=== PATIENT | male | born 1970 | race Two or more races ===

== ENCOUNTER 2020-03-28 12:48 | Outpatient (REF) | payer MEDICAID, SELFPAY | END 2020-03-28 12:49 | disposition home or self-care (01) | LOC: HO.LAB 12:48 | PROVIDERS: Visit Provider Internal Medicine | DX: Z20.828 Contact with and (suspected) exposure to other viral communicable diseases (principal) | CPT/HCPCS: C9803; U0003 ==

== ENCOUNTER 2020-04-27 06:10 | Outpatient (REF) | payer MEDICAID, SELFPAY | END 2020-04-27 06:11 | disposition home or self-care (01) | LOC: HO.LAB 06:10 | PROVIDERS: PCP Family Medicine; Visit Provider Internal Medicine | DX: Z20.828 Contact with and (suspected) exposure to other viral communicable diseases (principal) | CPT/HCPCS: C9803; U0003 ==

== ENCOUNTER 2020-11-05 14:00 | Outpatient (REF) | payer MEDICAID, SELFPAY ==
--- NOTE | ~2020-11-05 | XR_ITS ---
EXAMINATION: XR CHEST CLINICAL INFORMATION: Cough COMPARISON: None TECHNIQUE: 2 views of the chest were obtained. FINDINGS: No significant abnormality is noted involving the heart, lungs, mediastinum, bony thorax or soft tissues. XR/XR chest 2V IMPRESSION: Unremarkable examination.
== END 2020-11-05 14:01 | disposition home or self-care (01) ==
LOC: HO.XRAY 14:00
PROVIDERS: Absent Provider Internal Medicine; PCP Internal Medicine; Visit Provider Emergency Medicine
DX: R05 Cough (principal)
CPT/HCPCS: 71046

== ENCOUNTER 2023-02-12 14:40 | Outpatient (REF) | payer OTHER, SELFPAY ==
[2023-02-12 16:06] LABS: MANUAL DIFF FLAG NO
[2023-02-12 16:19] LABS: Basophils Absolute Auto 0.1 X10*3/uL (0.0-0.2); Basophils Percent Auto 0.6 % (0-2); Eosinophils Absolute Auto 0.1 X10*3/uL (0.0-0.4); Eosinophils Percent Auto 1.7 % (0-4); Hematocrit 40.9 % (42.0-52.0); Hemoglobin 13.8 g/dl (14.0-18.0); Imm Gran Abs Auto 0.02 X10*3/uL (0.00-0.03); Imm Gran Pct Auto 0.3 % (0.0-0.4); Lymphocytes Absolute Auto 2.9 X10*3/uL (1.2-4.9); Lymphocytes Percent Auto 37.6 % (20-40); Mean Corpuscular HGB Conc 33.7 g/dl (31.0-36.0); Mean Corpuscular Hemoglobin 31.4 pg (27.0-33.0); Monocytes Absolute Auto 0.8 X10*3/uL (0.1-1.2); Neutrophils Absolute Auto 3.9 x10*3/uL (2.0-8.3); Neutrophils Percent Auto 49.8 % (45-73); Platelet Count 248 X10*3/uL (160-400); Red Cell Distribution Width 12.7 % (11.0-16.0); White Blood Count 7.8 X10*3/uL (4.8-10.8)
[2023-02-12 17:09] LABS: Alanine Aminotransferase 46 U/L (0-40); Albumin Level 4.1 g/dL (3.5-5.0); Alkaline Phosphatase 85 U/L (39-117); Anion Gap 12 (12-20); Bilirubin Total 0.3 mg/dL (0.0-1.0); Blood Urea Nitrogen 12 mg/dL (9-16); Calcium 9.2 mg/dL (8.4-10.2); Carbon Dioxide 22 mmol/L (22-29); Chloride 107 mmol/L (96-108); Estimated Glomerular Filt Rate 57; Glucose Random 80 mg/dL (60-115); Potassium 3.8 mmol/L (3.3-5.1); Sodium 137 mmol/L (135-145); Total Protein 7.8 g/dL (6.5-8.0)
[2023-02-12 17:17] LABS: Aspartate Amino Transferase 27 U/L (5-37)
[2023-02-12 18:36] LABS: CT PCR NOT DETECTED (Not Detect.); NG PCR NOT DETECTED (Not Detect.)
[2023-02-13 08:34] LABS: ~Hepatitis C Antibody Nonreactive (Nonreactive)
[2023-02-13 09:58] LABS: Iron 82 mcg/dL (45-160); Percent Iron Saturation 29 % (15-50); Total Iron Binding Capacity 278 mcg/dL (228-428); Unsaturated Iron Binding 196 ug/dL
[2023-02-13 10:26] LABS: Ferritin 189 ng/mL (20-250)
[2023-02-13 10:31] LABS: Folate 5.9 ng/mL (> or = 4.0); Vitamin B12 455 pg/mL (200-900)
[2023-02-14 14:14] LABS: TS Negative Control Passed; TS Panel A 0; TS Panel B 0; TS Positive Control Passed; TSpotTB Negative (Negative)
[2023-02-16 06:49] LABS: Absolute CD3 Count 2368 cells/uL (840-3060); Absolute CD4 Count 900 cells/uL (490-1740); Absolute CD8 Count 1445 cells/uL (180-1170); Absolute Lymphocytes 3382 cells/uL (850-3900); CD4 CD8 Ratio 0.62 (0.86-5.00); Percent CD3 Cells 70 % (57-85); Percent CD4 Cells 27 % (30-61); Percent CD8 Cells 43 % (12-42)
[2023-02-17 08:44] LABS: RPR Rapid Plasma Reagin REACTIVE (NON-REACTIVE)
[2023-02-17 13:19] LABS: HIV RNA PCR Qn Copies NOT DETECTED copies/mL (NOT DETECTED); HIV RNA PCR Qn Log Copies NOT DETECTED (NOT DETECTED)
== END 2023-02-12 14:41 | disposition home or self-care (01) ==
LOC: HO.HHCL 14:40
PROVIDERS: Visit Provider Student in an Organized Health Care Education/Training Program
DX: K76.0 Fatty (change of) liver, not elsewhere classified (principal); B20 Human immunodeficiency virus [HIV] disease; Z11.3 Encounter for screening for infections with a predominantly sexual mode of transmission
CPT/HCPCS: 0353U; 80053; 82607; 82728; 82746; 83540; 85025; 86359; 86360; 86481; 86592; 86593; 86803; 87536

== ENCOUNTER 2023-04-06 13:58 | Outpatient (REF) | payer OTHER, SELFPAY ==
[2023-04-06 16:16] LABS: Hematocrit 46.1 % (42.0-52.0); Hemoglobin 15.4 g/dl (14.0-18.0); Mean Corpuscular HGB Conc 33.4 g/dl (31.0-36.0); Mean Corpuscular Hemoglobin 31.5 pg (27.0-33.0); Mean Corpuscular Volume 94.3 fL (80.0-98.0); Mean Platelet Volume 10.6 fL (9.4-12.4); Platelet Count 263 X10*3/uL (160-400); Red Blood Count 4.89 X10*6/uL (4.60-5.80); Red Cell Distribution Width 12.5 % (11.0-16.0); White Blood Count 9.5 X10*3/uL (4.8-10.8)
[2023-04-07 07:10] LABS: HBS Num1 0.34 mIU/mL (0-7.99); HBc Num1 0.11 S/CO (0.00-0.79); Hepatitis B Core Antibody Nonreactive (Nonreactive); ~Hepatitis B Surface Antibody NONREACTIVE (Nonreactive)
[2023-04-07 07:14] LABS: HBsAGNum1 0.32 S/CO (0.00-0.99); Hepatitis B Surface Antigen Negative (Negative)
[2023-04-07 07:33] LABS: Syphilis Screen Reactive (Nonreactive)
[2023-04-07 10:45] LABS: CT PCR NOT DETECTED (Not Detect.); NG PCR NOT DETECTED (Not Detect.)
[2023-04-10 19:54] LABS: C. Trachomatis RNA TMA, Throat NOT DETECTED; N. gonorrhoeae RNA TMA, Throat NOT DETECTED
[2023-04-12 00:58] LABS: C.Trachomatis RNA TMA, Rectal NOT DETECTED; N.Gonorrhoeae RNA TMA, Rectal NOT DETECTED
[2023-04-13 09:52] LABS: RPR Quantitative Reactive 1:8 (Nonreactive); T.Pallidum Particle Agg Test Reactive (Nonreactive)
== END 2023-04-06 13:59 | disposition home or self-care (01) ==
LOC: HO.HHCL 13:58
PROVIDERS: Visit Provider Student in an Organized Health Care Education/Training Program
DX: R85.612 Low grade squamous intraepithelial lesion on cytologic smear of anus (LGSIL) (principal); Z72.53 High risk bisexual behavior
CPT/HCPCS: 0353U; 36415; 85027; 86592; 86704; 86706; 86780; 87340; 87491; 87591; 88112

== ENCOUNTER 2023-04-20 13:24 | Outpatient (AMB) | payer OTHER, SELFPAY ==
--- NOTE | 2023-04-20 13:28 | A.OFFVIS_ITS ---
Intake Vital Signs 04/20/23 13:41 Height 5 ft 3.5 in Weight 244 lb BMI 42.5 BP 174/115 H Blood Pressure Location Lt brachial Position Sitting Pulse 85 Intake Visit Reasons: Anal lesion Intake Note: Patient is seen in office for evaluation and treatment of an anal lesion. Patient c/o: denies bleeding, constipation, nausea, vomit, is due to colonoscopy Prescription Clerk Required: No Accompanied by: Other Relationship Allergies No Known Allergies Allergy (Verified 04/20/23 13:40) Medication List - Last Reconciled 04/20/23 by Marcellus Hargrove MD amlodipine 5 mg PO DAILY kxllalchb-nsuxuxak-nnyxyor ala 50-200-25 mg (Biktarvy) 1 tab PO DAILY bupropion HCl 150 mg PO QAM loratadine 10 mg PO DAILY HPI Anal lesion HPI Details 53-year-old male referred for an anal le clemente. He is HIV positive, is on Biktarvy, and had undergone anal Pap with his primary care physician. This showed low-grade squamous intraepithelial lesion on cytology. He was therefore referred to me. He denies any palpable lesions in the anus. He says that he does this bright blood from anus after sexual intercourse. He admits to anoreceptive course. He says that he is often not protected sex. 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 HIV (human immunodeficiency virus infection) Family History Mother Stomach cancer Alcohol intake: never Patient Tobacco Use Status: Never used Tobacco Review of Systems Const Denies chills and Denies fever(s) Card Denies chest pain, Denies dyspnea and Denies dyspnea on exertion Resp Denies cough, Denies dyspnea and Denies dyspnea on exertion GI Reports hematochezia and Denies change in bowel habits Denies hematuria and Denies difficulty urinating Musc Denies back pain and Denies limited range of motion Neuro Denies focal weakness and Denies convulsions Psych Denies depression and Denies mood swings Physical Exam Const Other: Morbidly obese General: comfortable and no acute distress Orientation/consciousness: patient oriented x3 Neck Neck: Yes no lymphadenopathy Resp Auscultation: clear to auscultation bilaterally Cardio Rhythm: regular rhythm GI Other: Rectal exam shows a moderate size external hemorrhoid on the left, no other perianal lesions, anoscopy as described Palpation (GI): Soft to palpation, nontender and no guarding Neuro General: patient oriented x3 Office Procedures Anoscopy He was in jackelyn-knife position. The anoscope was gently inserted. A full examination of the anal canal was done. He did have this mixed internal external hemorrhoidal column on the left side. There were no other lesions. There was no ulceration. There was no induration on digital exam. There was no blood on the examining finger. There were no mucosal changes in the anal canal. 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 He does have HIV and engages in anal receptive intercourse which is often unprotected. There are no definite established guidelines for surveillance for AIN especially for low grade lesions. I will however see him again in about 6 months to repeat his anoscopy. He understands the plan well. 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
[2023-04-20 13:41] VITALS: BP 174/115; PULSE 85; BMI 42.5
== END 2023-04-20 13:47 | disposition home or self-care (01) ==
PROVIDERS: PCP Internal Medicine; Referring Provider Internal Medicine; Visit Provider Surgery
DX: R85.612 Low grade squamous intraepithelial lesion on cytologic smear of anus (LGSIL) (principal)
CPT/HCPCS: 46600; 99203

== ENCOUNTER → 2023-04-20 13:24 | Outpatient (BNVA) | payer OTHER, SELFPAY | PROVIDERS: PCP Internal Medicine; Referring Provider Internal Medicine; Visit Provider Surgery | DX: R85.612 Low grade squamous intraepithelial lesion on cytologic smear of anus (LGSIL) (principal) | CPT/HCPCS: 46600; 99202 ==

== ENCOUNTER 2023-06-01 15:13 | Outpatient (REF) | payer OTHER, SELFPAY ==
[2023-06-08 16:24] LABS: RPR Rapid Plasma Reagin REACTIVE (NON-REACTIVE)
== END 2023-06-01 15:14 | disposition home or self-care (01) ==
LOC: HO.HHCL 15:13
PROVIDERS: Visit Provider Student in an Organized Health Care Education/Training Program
DX: A52.9 Late syphilis, unspecified (principal)
CPT/HCPCS: 36415; 86592; 86593

== ENCOUNTER 2023-08-24 15:05 | Outpatient (REF) | payer OTHER, SELFPAY ==
[2023-08-24 16:09] LABS: MANUAL DIFF FLAG NO
[2023-08-24 16:21] LABS: Basophils Absolute Auto 0.1 X10*3/uL (0.0-0.2); Basophils Percent Auto 0.6 % (0-2); Eosinophils Absolute Auto 0.1 X10*3/uL (0.0-0.4); Eosinophils Percent Auto 1.3 % (0-4); Hematocrit 42.4 % (42.0-52.0); Hemoglobin 14.7 g/dl (14.0-18.0); Imm Gran Abs Auto 0.01 X10*3/uL (0.00-0.03); Imm Gran Pct Auto 0.1 % (0.0-0.4); Lymphocytes Absolute Auto 3.2 X10*3/uL (1.2-4.9); Lymphocytes Percent Auto 40.9 % (20-40); Mean Corpuscular HGB Conc 34.7 g/dl (31.0-36.0); Mean Corpuscular Hemoglobin 31.5 pg (27.0-33.0); Mean Platelet Volume 9.7 fL (9.4-12.4); Monocytes Absolute Auto 0.6 X10*3/uL (0.1-1.2); Monocytes Percent Auto 7.5 % (2-11); Neutrophils Absolute Auto 3.9 x10*3/uL (2.0-8.3); Neutrophils Percent Auto 49.6 % (45-73); Platelet Count 242 X10*3/uL (160-400); Red Blood Count 4.66 X10*6/uL (4.60-5.80); Red Cell Distribution Width 12.4 % (11.0-16.0); White Blood Count 7.9 X10*3/uL (4.8-10.8)
[2023-08-24 16:49] LABS: Alanine Aminotransferase 30 U/L (0-40); Albumin Level 4.1 g/dL (3.5-5.0); Alkaline Phosphatase 85 U/L (39-117); Anion Gap 10 (12-20); Aspartate Amino Transferase 18 U/L (5-37); Bilirubin Total 0.5 mg/dL (0.0-1.0); Blood Urea Nitrogen 13 mg/dL (9-16); Calcium 9.5 mg/dL (8.4-10.2); Carbon Dioxide 25 mmol/L (22-29); Chloride 109 mmol/L (96-108); Estimated Glomerular Filt Rate > 60; Glucose Random 92 mg/dL (60-115); Potassium 4.2 mmol/L (3.3-5.1); Sodium 140 mmol/L (135-145); Total Protein 7.9 g/dL (6.5-8.0)
[2023-08-24 18:48] LABS: CT PCR NOT DETECTED (Not Detect.); NG PCR NOT DETECTED (Not Detect.)
[2023-08-25 08:30] LABS: ~HepC Num1 0.35 S/CO (0.00-0.79); ~Hepatitis C Antibody Nonreactive (Nonreactive)
[2023-08-26 04:24] LABS: HIV RNA PCR Qn Copies 112 copies/mL (NOT DETECTED); HIV RNA PCR Qn Log Copies 2.05 (NOT DETECTED)
[2023-08-26 07:53] LABS: Absolute CD3 Count 2259 cells/uL (840-3060); Absolute CD4 Count 970 cells/uL (490-1740); Absolute CD8 Count 1269 cells/uL (180-1170); Absolute Lymphocytes 3101 cells/uL (850-3900); CD4 CD8 Ratio 0.76 (0.86-5.00); Percent CD3 Cells 73 % (57-85); Percent CD4 Cells 31 % (30-61); Percent CD8 Cells 41 % (12-42)
[2023-08-26 13:28] LABS: RPR Rapid Plasma Reagin REACTIVE (NON-REACTIVE)
== END 2023-08-24 15:06 | disposition home or self-care (01) ==
LOC: HO.HHCL 15:05
PROVIDERS: Visit Provider Student in an Organized Health Care Education/Training Program
DX: B20 Human immunodeficiency virus [HIV] disease (principal)
CPT/HCPCS: 0353U; 36415; 80053; 85025; 86359; 86360; 86592; 86593; 86803; 87536

== ENCOUNTER 2023-09-21 16:25 | Outpatient (REF) | payer OTHER, SELFPAY ==
[2023-09-26 06:14] LABS: C.Trachomatis RNA TMA, Rectal NOT DETECTED; N.Gonorrhoeae RNA TMA, Rectal NOT DETECTED
[2023-09-26 06:59] LABS: C. Trachomatis RNA TMA, Throat NOT DETECTED; N. gonorrhoeae RNA TMA, Throat NOT DETECTED
== END 2023-09-21 16:26 | disposition home or self-care (01) ==
LOC: HO.HHCLNP 16:25
PROVIDERS: Visit Provider Student in an Organized Health Care Education/Training Program
DX: B20 Human immunodeficiency virus [HIV] disease (principal)
CPT/HCPCS: 87491; 87591

== ENCOUNTER 2023-10-05 10:40 | Outpatient (AMB) | payer OTHER, SELFPAY ==
--- NOTE | 2023-10-05 11:12 | MHC.OFFVIS ---
Vital Signs 10/05/23 11:13 Height 5 ft 3.5 in Weight 236 lb BMI 41.1 BP 124/76 Blood Pressure Location Lt brachial Position Sitting Pulse 69 Intake Visit Reasons: Colonoscopy Screening Intake Note: Bari presents in office today for colonoscopy screening. CC: Patient denies having colonoscopy in the past. Patient denies having any GI symptoms today. Access Database Developer Required: No Accompanied by: Self / Same As Patient Allergies No Known Allergies Allergy (Verified 10/05/23 11:18) HPI HPI Colonoscopy Screening: Details: 53 year old? female here today for pre colonoscopy screening.? Patient was sent to us by his PCP.? This is his first colonoscopy screening.? Patient denies any gastrointestinal symptoms in the past or at present.? Denies any personal or family history of gastrointestinal disease, colon polyps, or CRC.? Patient never had anesthesia in the past.? Negative for history of sleep apnea.? Denies any history of cardiac, renal, pulmonary, or hepatic disease.?? No history of infectious? diseases like hepatitis A, B, C, HIV or tuberculosis.? 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 HIV (human immunodeficiency virus infection) Surgical History No pertinent past surgical history Family History Mother Stomach cancer Social History Alcohol intake: never Patient Tobacco Use Status: Never used Tobacco Review of Systems Const Denies weight gain and Denies weight loss ENT Reports no additional complaints, Denies dysphagia and Denies odynophagia Card Reports no additional complaints Resp Reports no additional complaints GI Denies abdominal pain, Denies belching, Denies melena, Denies bloating, Denies change in bowel habits, Denies dysphagia, Denies excessive flatus, Denies dyspepsia, Denies heartburn, Denies diarrhea, Denies loose stools, Denies nausea, Denies odynophagia and Denies vomiting Reports no additional complaints Musc Reports no additional complaints Neuro Reports no additional complaints Psych Reports no additional complaints Endo Reports no additional complaints Physical Exam Vital Signs: Last Vital Signs Pulse 69 10/05/23 11:13 BP 124/76 10/05/23 11:13 BMI result Body Mass Index 41.1 Const General: healthy appearing, no acute distress and well developed Nutritional Appearance: well nourished Orientation/consciousness: patient oriented x3 HEENT Head: Yes normal to inspection, Yes normocephalic and Yes atraumatic Face and sinus: Yes normal facial exam Mouth: Normal oral and palatal mucosa present Throat: Yes posterior oropharynx normal, Yes tonsils normal and Yes uvula midline Eyes General: appearance normal, both eyes and all related structures Neck Neck: Yes normal visual inspection, Yes full ROM and Yes trachea midline Thyroid: Thyroid normal Resp Effort & Inspection: normal respiratory effort, able to speak in complete sentences, no tracheal deviation and symmetric chest movement Auscultation: clear to auscultation bilaterally Cardio Jugular venous distension: no JVD Rate: regular rate Heart sounds: S1 normal heart sound present, S2 normal heart sound present, no gallops and no murmurs GI Inspection: Yes normal to inspection and No distended Palpation (GI): Soft to palpation, not firm, nontender and No hepatosplenomegaly present Auscultation: normal bowel sounds General: Yes no CVA tenderness Back/Spine/Pelvis Back: no CVA tenderness Skin General skin exam: elasticity normal, turgor normal and dry skin Neuro General: patient oriented x3 Psych Appearance: grossly normal Mental Status: mental status grossly normal Speech and movement: Normal speech and movement present Affect: normal affect Attitude: cooperative Thought process: Normal thought process present Thought content: Normal thought content present Insight: Good insight present (Psych) Judgement: Good judgement present (Psych) Assessment & Plan Assessment & Plan (1) Screen for colon cancer: Code(s): Z12.11 - Encounter for screening for malignant neoplasm of colon Plan Patient denies any GI, cardiac or respiratory symptoms.? Patient never had anesthesia in the past.? Denies any history of sleep apnea.? No history infectious diseases in the past or present.? Not on any anticoagulation therapy.? No family or personal history of colon cancer or polyps.? Patient denies melena, hematochezia, unintentional weight loss or ribbon like stools.? Discussed at length the pre-procedure,? prep, diet & medications as well as what to expect prior, during and after the procedure.?? Stressed the importance of good bowel prep.? Recommended the use of Vaseline or Calmoseptine OTC & baby wipes with bowel movements to promote comfort.? ?Patient verbalizes understanding and agrees to plan of care.? He was given the opportunity to ask questions and all questions answered.? We will see him after the procedure.? Medications: New bisacodyl (Dulcolax (bisacodyl)) take 4 tabs at noon the day before your colonoscopy 20 mg (4 x 5 mg) PO ONCE 1 day 4 tabs 0RF Z12.11 - Encounter for screening for malignant neoplasm of colon hydrocortisone 2.5% (Proctosol HC) 1 appl IN BID-QID PRN 30 grams 2RF hemorrhoids K64.9 - Unspecified hemorrhoids polyethylene glycol 3350 (Miralax) As directed by gastroenterology department at [facility] 238 grams PO ONCE 238 grams 0RF Z12.11 - Encounter for screening for malignant neoplasm of colon Coding Level of Care Code New Pt Level 3 (87518) Diagnoses Screen for colon cancer Z12.11 Time Spent (min) 40 Comment 30 minutes spent with patient and additional 10 minutes spent reviewing his records
[2023-10-05 11:13] VITALS: BP 124/76; PULSE 69; BMI 41.1
== END 2023-10-05 11:47 | disposition home or self-care (01) ==
PROVIDERS: PCP Internal Medicine; Visit Provider Nurse Practitioner Family
DX: Z12.11 Encounter for screening for malignant neoplasm of colon (principal); Z01.818 Encounter for other preprocedural examination
CPT/HCPCS: 99203

== ENCOUNTER → 2023-10-05 10:40 | Outpatient (BNVA) | payer OTHER, SELFPAY | PROVIDERS: PCP Internal Medicine; Visit Provider Nurse Practitioner Family | DX: Z12.11 Encounter for screening for malignant neoplasm of colon (principal) | CPT/HCPCS: 99202 ==

== ENCOUNTER 2023-10-22 15:57 | Outpatient (REF) | payer OTHER, SELFPAY ==
[2023-10-22 17:40] LABS: Estimated Average Glucose 91 mg/dL; Hemoglobin A1c % 4.8 % (<6.0)
[2023-10-22 17:56] LABS: Cholesterol 174 mg/dL (<200); HDL Cholesterol 33 mg/dL (>40); LDL Cholesterol Calculated 127 mg/dL (<100); Triglycerides 70 mg/dL (<150)
[2023-10-22 18:13] LABS: TSH reflex Free T4 1.58 uIU/mL (0.32-4.0)
[2023-10-23 02:47] LABS: CT PCR NOT DETECTED (Not Detect.); NG PCR NOT DETECTED (Not Detect.)
[2023-10-23 08:27] LABS: HBS Num1 > 1000.00 mIU/mL (0-7.99); HBsAGNum1 0.34 S/CO (0.00-0.99); Hepatitis B Core Antibody Nonreactive (Nonreactive); Hepatitis B Surface Antigen Negative (Negative); ~Hepatitis B Surface Antibody REACTIVE (Nonreactive)
[2023-10-23 08:30] LABS: Syphilis Screen Reactive (Nonreactive)
[2023-10-23 17:53] LABS: Rubella IgG Antibody <0.90 Index; Rubeola IgG (Measles) <13.50 AU/mL
[2023-10-24 12:39] LABS: HIV RNA PCR Qn Copies 30 copies/mL (NOT DETECTED); HIV RNA PCR Qn Log Copies 1.48 (NOT DETECTED)
[2023-10-30 14:47] LABS: RPR Quantitative Reactive 1:4 (Nonreactive); T.Pallidum Particle Agg Test Reactive (Nonreactive)
== END 2023-10-22 15:58 | disposition home or self-care (01) ==
LOC: HO.HHCL 15:57
PROVIDERS: Visit Provider Student in an Organized Health Care Education/Training Program
DX: B20 Human immunodeficiency virus [HIV] disease (principal)
CPT/HCPCS: 0353U; 36415; 80061; 83036; 84443; 86592; 86704; 86706; 86735; 86762; 86765; 86780; 87340; 87536

== ENCOUNTER 2023-12-07 14:00 | Outpatient (AMB) | payer OTHER, SELFPAY ==
[2023-12-07 15:15] VITALS: BMI 39.6
--- NOTE | 2023-12-07 15:15 | MHC.OFFVIS ---
Vital Signs 12/07/23 15:15 Height 5 ft 3.5 in Weight 227 lb BMI 39.6 Intake Visit Reasons: 6 month follow-up anal lesion Intake Note: This patient presents for a six month follow-up anal lesion. Pt c/o; reports no complaints. Educational Therapy Teacher Required: No Accompanied by: Self / Same As Patient Allergies No Known Allergies Allergy (Verified 12/07/23 15:30) HPI HPI 6 month follow-up anal lesion: Details: He is here for follow-up for presence of low-grade squamous intraepithelial lesion on a previous anal Pap smear. Initial anoscopy 6 months ago did not reveal any suspicious areas in the anal canal. He denies any anal pain or bleeding. He does state that he feels an external hemorrhoid. He admits to engaging in anal receptive intercourse. 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 HIV (human immunodeficiency virus infection) Surgical History No pertinent past surgical history Family History Mother Stomach cancer Social History Alcohol intake: never Patient Tobacco Use Status: Never used Tobacco Review of Systems Const Denies chills and Denies fever(s) Card Denies chest pain, Denies dyspnea and Denies dyspnea on exertion Resp Denies cough, Denies dyspnea and Denies dyspnea on exertion GI Denies hematochezia and Denies change in bowel habits Denies hematuria and Denies difficulty urinating Musc Denies back pain and Denies limited range of motion Neuro Denies focal weakness and Denies convulsions Psych Denies depression and Denies mood swings Physical Exam Vital Signs: BMI result Body Mass Index 39.6 Const General: comfortable and no acute distress Resp Effort & Inspection: normal respiratory effort Cardio Rate: regular rate GI Other: Rectal exam shows external hemorrhoids on the left and right side, no perianal lesions Palpation (GI): Soft to palpation Office Procedures Anoscopy He was in jackelyn-knife position. The anoscope was gently inserted. A full examination of the anal canal was done. I did not see any abnormal mucosa of the anal canal. There were no lesions or any fissure. There was no ulceration. There was no induration on digital exam. 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 I told him that we will continue to do anoscopy is every 6 months. He understands this plan. He denies any complaints at this time. I advised him on the importance of protected anal intercourse. 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
== END 2023-12-07 15:34 | disposition home or self-care (01) ==
PROVIDERS: PCP Internal Medicine; Visit Provider Surgery
DX: R85.612 Low grade squamous intraepithelial lesion on cytologic smear of anus (LGSIL) (principal)
CPT/HCPCS: 46600; 99213

== ENCOUNTER → 2023-12-07 14:00 | Outpatient (BNVA) | payer OTHER, SELFPAY | PROVIDERS: PCP Internal Medicine; Visit Provider Surgery | DX: R85.612 Low grade squamous intraepithelial lesion on cytologic smear of anus (LGSIL) (principal) | CPT/HCPCS: 46600; 99212 ==

== ENCOUNTER 2024-03-25 14:22 | Outpatient (REF) | payer OTHER, SELFPAY ==
--- NOTE | ~2024-03-25 | MM_ITS ---
EXAMINATION: BONE DENSITOMETRY CLINICAL INDICATION: HIV, rule out osteoporosis. COMPARISON: This is the patient's baseline examination. TECHNIQUE: Using a [employer] DXA System (software version: 13.1) manufactured by [employer], dual-energy x-ray absorptiometry was performed of the lumbar spine and left hip. The images are of good technical quality. Summary results are attached. FINDINGS: LEFT FEMUR, NECK: BMD 0.957 g/cm2, Z-score -0.7, T-score -0.9, normal. LEFT FEMUR, TOTAL: BMD 0.994 g/cm2, Z-score -0.8, T-score -0.7, normal. AP SPINE L1-L3 (excluding L4): The data of L1-L4 has been changed to exclude the L4 vertebral body, because at this level may cause overestimation of lumbar spine density. BMD 1.083 g/cm2, Z-score -1.6, T-score -1.1, osteopenia. IDENTIFIED RISK FACTORS: Tobacco user (current smoker). HISTORY OF FRACTURE: None listed. MEDICATIONS: None listed. MM/XR DEXA axial skeleton IMPRESSION: 1. DIAGNOSIS: Osteopenia based on the lowest T-score value of -1.1 in the lumbar spine applying World Health Organization criteria. 2. 10-YEAR FRACTURE RISK PREDICTION, FRAX: Major osteoporotic fracture (clinical spine, forearm, hip or shoulder) 1.8%. Hip fracture 0.2%. 3. Treatment Recommendations: NOF guidelines recommend consideration for treatment in postmenopausal women and men age 50 and older presenting with the following: -A hip or vertebral (clinical or morphometric) fracture. -T-score less than or equal to -2.5 at the femoral neck or spine after appropriate evaluation to exclude secondary causes. -Low bone mass at the hip or spine and a 10-year fracture probability by FRAX of greater than or equal to 3% for hip fracture or greater than or equal to 20% for major osteoporotic fracture based on the [place] adapted WHO algorithm. 4. Other Recommendations: All treatment decisions require clinical judgment and consideration of individual patient factors, including patient preferences, comorbidities, previous drug use, risk factors not captured in the FRAX model (e.g. frailty, falls, vitamin D deficiency, increased bone turnover, interval significant decline in bone density) and possible under or overestimation of fracture risk by FRAX. Additional medical evaluation for secondary cause of low bone mineral density may be appropriate. FUTURE SCAN RECOMMENDATION: People with diagnosed cases of osteoporosis or at high risk for fracture should have regular bone mineral density tests. For patients eligible for Medicare, routine testing is allowed once every 2 years. The testing frequency can be increased to one year for patients who have rapidly progressing disease, those who are receiving or discontinuing medical therapy to restore bone mass, or have additional risk factors. Electronically signed by: Casimiro Carrillo MD 04/01/2024 08:11 AM [facility]
== END 2024-03-25 14:23 | disposition home or self-care (01) ==
LOC: HO.MAMMO 14:22
PROVIDERS: PCP Student in an Organized Health Care Education/Training Program; Visit Provider Student in an Organized Health Care Education/Training Program
DX: Z13.820 Encounter for screening for osteoporosis (principal); Z21 Asymptomatic human immunodeficiency virus [HIV] infection status
CPT/HCPCS: 77080

== ENCOUNTER 2024-04-04 09:54 | Day surgery (SDC) | payer OTHER, SELFPAY ==
[2024-03-31 10:15] VITALS: BMI 41.1
--- NOTE | 2024-04-01 12:34 | P.CONAN_ITS ---
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 If so, by whom?: No Are you DNR?: No Advance Directives: No Advance Directives Information Provided: Yes Recently lost weight without trying: No Nutrition Risks: No Nutritional Risk Meds Allergies Allergy/AdvReac Type Severity Reaction Status Date / Time No Known Allergies Allergy Verified 04/04/24 10:31 Home Medications ?Medication ?Instructions ?Recorded ?Confirmed ?Last Taken ?Type amlodipine 5 mg tablet 5 mg PO DAILY 04/20/23 04/04/24 04/04/24 History bictegravir 50 mg-emtricitabine 1 tab PO DAILY 04/20/23 04/04/24 04/04/24 History 200 mg-tenofovir alafenam 25 mg tablet (Biktarvy) bupropion HCl 150 mg 24 hr tablet, 150 mg PO QAM 04/20/23 04/04/24 04/04/24 History extended release loratadine 10 mg tablet 10 mg PO DAILY 04/20/23 04/04/24 04/04/24 History Exam Height,Weight and Vital Signs: Height 5 ft 3.5 in Weight 107.048 kg Assessment and Plan Assessment Anesthesia Assessment: Chart Reviewed Documented by User: Neelam Ta MD 04/04/24 10:51 PMFSH Past Medical History Medical History Transaminitis High risk bisexual behavior Anemia Obese Depression Intertrigo AVALOS (nonalcoholic steatohepatitis) 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 HIV (human immunodeficiency virus infection) Family History Family History Mother Stomach cancer Family history of problems with anesthesia: No Surgical History Surgical History No pertinent past surgical history History of Problems with Anesthesia: No Social History Social History Are you a primary transition of care specialist to a significant other at home: No Do you presently have visiting nurse or other home services: No Alcohol intake: never Patient Tobacco Use Status: Never used Tobacco Substance Use Frequency: Daily Have you been hit, kicked, punched, or otherwise hurt by someone within the past year? If so, by whom?: No Are you DNR?: No Advance Directives: No Advance Directives Information Provided: Yes Recently lost weight without trying: No Nutrition Risks: No Nutritional Risk Meds Allergies Allergy/AdvReac Type Severity Reaction Status Date / Time No Known Allergies Allergy Verified 04/04/24 10:31 Home Medications ?Medication ?Instructions ?Recorded ?Confirmed ?Last Taken ?Type amlodipine 5 mg tablet 5 mg PO DAILY 04/20/23 04/04/24 04/04/24 History bictegravir 50 mg-emtricitabine 1 tab PO DAILY 04/20/23 04/04/24 04/04/24 History 200 mg-tenofovir alafenam 25 mg tablet (Biktarvy) bupropion HCl 150 mg 24 hr tablet, 150 mg PO QAM 04/20/23 04/04/24 04/04/24 History extended release loratadine 10 mg tablet 10 mg PO DAILY 04/20/23 04/04/24 04/04/24 History Exam Airway Mallampati Class: II (missing some) TM Dist: >3cm Neck ROM: Full Heart: rrr Lungs: cta Assessment and Plan Assessment Anesthesia Assessment: Anesthesia Plan Discussed Final Anesthetic Review Family History of Problems with Anesthesia: No History of Problems with Anesthesia: No NPO: Yes ASA Class: III Final Preanesthetic Review: No Changes in Pt Med Stat, Meds/Allgs Chart Reviewed and Consent Obtained/Reviewed Patient Risk: Low Procedure Risk: Low Anesthetic Plan Anesthetic Plan: MAC: Disposition: Standard PACU
--- NOTE | 2024-04-04 10:27 | MHC.SHP ---
Pre-Procedural Eval Section A - 24 Hr Update-Section A only Date of Service: 04/04/24 The patient is an INPATIENT: No The patient has been examined within 24 hours of the surgical procedure. 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 No changes have occurred unless specified. Time Spent With Patient Time: Total time managing care of this patient today ____ minutes.
[2024-04-04 10:41] VITALS: BMI 38.7
[2024-04-04] MEDS: Lactated Ringers 1,000 ML 100 ML IVCONT (10:47)
[2024-04-04 10:51] VITALS: BP 136/72; PULSE 65; RESP 18; TEMP 36.7; O2SAT 95
--- NOTE | 2024-04-04 12:16 | P.OPN-COLO_ITS ---
Colonoscopy Operative Note Operative Note Date of Service: 04/04/24 Narrative: COLONOSCOPY TILL CECUM Pre-op diagnosis: Colon cancer screening (first colon). Post-op diagnosis:? Hemorrhoids Endoscopist:? Cherelle Forbes MD Anesthesia:?MAC Consent: Indications for the procedure and potential complications of bleeding, perforation, reaction to medications and missed diagnosis were discussed with the patient and informed consent was obtained. Instrument: Olympus PCF H 190 L variable stiffness pediatric colonoscope Monitoring: Vital signs and clinical assessment, intermittent blood pressure monitoring, continuous EKG monitoring, Pulse oximetry and Carbon Dioxide monitoring were done throughout the procedure. Please see anesthesia flowsheet. Colon withdrawl time was 14 minutes. Procedure: The patient was placed in the left lateral decubitis position and pre-procedure medications were administered. After a digital rectal examination of the ano-rectum, the video colonoscope was inserted into the rectum and advanced through the colon to the cecum. The colonoscope was slowly withdrawn in a retrograde panoramic fashion and the colon mucosa was carefully examined including a retroflexed view of the rectum. Findings and interventions are described below. Procedure Difficulty: without difficulty Findings: Terminal Ileum: Not evaluated Cecum: Normal Ascending Colon: Normal Transverse Colon: Normal Descending Colon: Normal Sigmoid Colon: Normal Rectum: Normal Ano-rectum: Small internal hemorrhoids Colon preparation: Good after copious irrigation. [place] Bowel Preparation Scale Right colon; 2 Transverse colon: 2 Left colon; 2 (0 = Unprepared colon segment with mucosa not seen due to solid stool that cannot be cleared. 1 = Portion of mucosa of the colon segment seen, but other areas of the colon segment not well seen due to staining, residual stool and/or opaque liquid. 2 = Minor amount of residual staining, small fragments of stool and/or opaque liquid, but mucosa of colon segment seen well. 3 = Entire mucosa of colon segment seen well with no residual staining, small fragments of stool or opaque liquid) Impression and Post Procedure Diagnosis: Colonoscopy Findings: No polyps were detected Small hemorrhoids on retroflexed exam. Plan: Repeat Colonoscopy in 10 year (earlier if clinically indicated) (Dulcolax 10 mg daily for 5 days prior to next colonoscopy). Pt placed on colonoscopy recall list. Above findings were reviewed with the patient and relevant handouts were given and the discharge area.
[2024-04-04 12:17] VITALS: BP 95/50; PULSE 59; RESP 16; TEMP 36.2; O2SAT 96
[2024-04-04 12:32] VITALS: BP 116/70; PULSE 68; RESP 16; TEMP 36.2; O2SAT 95
== END 2024-04-04 12:52 | disposition home or self-care (01) ==
PROVIDERS: PCP Student in an Organized Health Care Education/Training Program; Visit Provider Internal Medicine Gastroenterology
PROC: 0DJD8ZZ Inspection of Lower Intestinal Tract, Via Natural or Artificial Opening Endoscopic (ICD-10-PCS; CPT 45378; principal; 2024-04-04 11:50)
DX: Z12.11 Encounter for screening for malignant neoplasm of colon (principal); K64.8 Other hemorrhoids; K75.81 Nonalcoholic steatohepatitis (NASH); D64.9 Anemia, unspecified; L30.4 Erythema intertrigo; Z72.53 High risk bisexual behavior; B20 Human immunodeficiency virus [HIV] disease; R74.01 Elevation of levels of liver transaminase levels; E66.9 Obesity, unspecified; Z68.41 Body mass index [BMI] 40.0-44.9, adult; F32.A Depression, unspecified; Z79.899 Other long term (current) drug therapy
CPT/HCPCS: 45378; J2003; J2704

== ENCOUNTER → 2024-04-04 09:54 | Outpatient (BNV) | payer OTHER, SELFPAY | PROVIDERS: PCP Student in an Organized Health Care Education/Training Program; Visit Provider Internal Medicine Gastroenterology | DX: Z12.11 Encounter for screening for malignant neoplasm of colon (principal); K64.8 Other hemorrhoids | CPT/HCPCS: 45378 ==

== ENCOUNTER 2024-04-11 10:43 | Outpatient (REF) | payer OTHER, SELFPAY ==
[2024-04-11 11:37] LABS: MANUAL DIFF FLAG NO
[2024-04-11 12:01] LABS: Basophils Percent Auto 0.6 % (0-2); Eosinophils Absolute Auto 0.1 X10*3/uL (0.0-0.4); Eosinophils Percent Auto 2.1 % (0-4); Hematocrit 43.7 % (42.0-52.0); Hemoglobin 14.7 g/dl (14.0-18.0); Imm Gran Abs Auto 0.01 X10*3/uL (0.00-0.03); Imm Gran Pct Auto 0.1 % (0.0-0.4); Lymphocytes Absolute Auto 2.9 X10*3/uL (1.2-4.9); Lymphocytes Percent Auto 43.8 % (20-40); Mean Corpuscular HGB Conc 33.6 g/dl (31.0-36.0); Mean Corpuscular Hemoglobin 31.3 pg (27.0-33.0); Mean Corpuscular Volume 93.2 fL (80.0-98.0); Mean Platelet Volume 9.8 fL (9.4-12.4); Monocytes Absolute Auto 0.6 X10*3/uL (0.1-1.2); Monocytes Percent Auto 8.5 % (2-11); Neutrophils Percent Auto 44.9 % (45-73); Platelet Count 234 X10*3/uL (160-400); Red Blood Count 4.69 X10*6/uL (4.60-5.80); Red Cell Distribution Width 12.5 % (11.0-16.0); White Blood Count 6.7 X10*3/uL (4.8-10.8)
[2024-04-11 12:44] LABS: Alanine Aminotransferase 31 U/L (0-40); Albumin Level 4.1 g/dL (3.5-5.0); Alkaline Phosphatase 87 U/L (39-117); Anion Gap 11 (12-20); Aspartate Amino Transferase 23 U/L (5-37); Bilirubin Total 0.2 mg/dL (0.0-1.0); Blood Urea Nitrogen 18 mg/dL (9-16); Calcium 9.1 mg/dL (8.4-10.2); Carbon Dioxide 22 mmol/L (22-29); Chloride 110 mmol/L (96-108); Cholesterol 195 mg/dL (<200); Estimated Glomerular Filt Rate > 60; Glucose Random 100 mg/dL (60-115); HDL Cholesterol 43 mg/dL (>40); LDL Cholesterol Calculated 141 mg/dL (<100); Potassium 4.1 mmol/L (3.3-5.1); Sodium 139 mmol/L (135-145); Total Protein 7.6 g/dL (6.5-8.0); Triglycerides 57 mg/dL (<150)
[2024-04-11 12:45] LABS: ~HepC Num1 0.37 S/CO (0.00-0.79); ~Hepatitis C Antibody Nonreactive (Nonreactive)
[2024-04-11 13:07] LABS: Reflex LDLD? No
[2024-04-11 13:09] LABS: CT PCR NOT DETECTED (Not Detect.); NG PCR NOT DETECTED (Not Detect.)
[2024-04-12 15:43] LABS: HIV RNA PCR Qn Copies NOT DETECTED copies/mL (NOT DETECTED); HIV RNA PCR Qn Log Copies NOT DETECTED (NOT DETECTED)
[2024-04-13 06:28] LABS: RPR Rapid Plasma Reagin REACTIVE (NON-REACTIVE)
[2024-04-14 20:38] LABS: Absolute CD3 Count 2130 cells/uL (840-3060); Absolute CD4 Count 777 cells/uL (490-1740); Absolute CD8 Count 1316 cells/uL (180-1170); Absolute Lymphocytes 2923 cells/uL (850-3900); CD4 CD8 Ratio 0.59 (0.86-5.00); Percent CD3 Cells 73 % (57-85); Percent CD4 Cells 27 % (30-61); Percent CD8 Cells 45 % (12-42)
== END 2024-04-11 10:44 | disposition home or self-care (01) ==
LOC: HO.HHCL 10:43
PROVIDERS: Visit Provider Student in an Organized Health Care Education/Training Program
DX: B20 Human immunodeficiency virus [HIV] disease (principal)
CPT/HCPCS: 80053; 80061; 85025; 86359; 86360; 86592; 86593; 86787; 86803; 87491; 87536; 87591

== ENCOUNTER 2024-05-30 13:48 | Outpatient (AMB) | payer OTHER, SELFPAY ==
--- NOTE | 2024-05-30 13:50 | MHC.OFFVIS ---
Vital Signs 05/30/24 13:55 Height 5 ft 4 in Weight 236 lb 2 oz BMI 40.5 Intake Visit Reasons: 6 month follow up anal lesion Intake Note: This patient presents for six month low grade squamous intraepithelial lesion. Pt c/o; reports no complaints at this time. 04/07/2023: last anal pap [employer] Required: No Accompanied by: Self / Same As Patient Allergies No Known Allergies Allergy (Verified 05/30/24 13:55) HPI HPI 6 month follow up anal lesion: Details: He is here for follow-up for presence of low-grade squamous intraepithelial lesion on a previous anal Pap smear. Initial anoscopy 6 months ago did not reveal any suspicious areas in the anal canal. He denies any anal pain or bleeding. He does state that he feels an external hemorrhoid. He admits to engaging in anal receptive intercourse. He has known HIV and has undetectable viral load. 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 HIV (human immunodeficiency virus infection) Surgical History No pertinent past surgical history Family History Mother Stomach cancer Social History Are you a primary occasional caregiver to a significant other at home: No Do you presently have visiting nurse or other home services: No Alcohol intake: never Patient Tobacco Use Status: Never used Tobacco Physical Exam Vital Signs: BMI result Body Mass Index 40.5 Const General: comfortable and no acute distress Orientation/consciousness: patient oriented x3 Neck Neck: Yes no lymphadenopathy Resp Auscultation: clear to auscultation bilaterally Cardio Rhythm: regular rhythm GI Palpation (GI): Soft to palpation, nontender and no guarding Neuro General: patient oriented x3 Office Procedures Anoscopy He was in jackelyn-knife position. The anoscope was gently inserted. A full examination of the anal canal was done. He did have some small hemorrhoidal columns, mostly internal. There were no other lesions. There was no fissure ulceration. There was no abnormal looking mucosa or anoderm. There was no induration on digital exam. There was no bleeding. 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 I told him that we will continue to do anoscopy and we will stretch this out to once a year for now. I did explain to him that if he notices any changes with regards to his anus including blood per rectum or discomfort, he should come back earlier than that. He understands this plan. He denies any complaints at this time. I advised him on the importance of protected anal intercourse. Again, he says that his viral load is undetectable. He remains on Biktarvy. 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
[2024-05-30 13:55] VITALS: BMI 40.5
== END 2024-05-30 14:05 | disposition home or self-care (01) ==
PROVIDERS: PCP Internal Medicine; Visit Provider Surgery
DX: R85.612 Low grade squamous intraepithelial lesion on cytologic smear of anus (LGSIL) (principal)
CPT/HCPCS: 46600; 99213

== ENCOUNTER → 2024-05-30 13:48 | Outpatient (BNVA) | payer OTHER, SELFPAY | PROVIDERS: PCP Internal Medicine; Visit Provider Surgery | DX: R85.612 Low grade squamous intraepithelial lesion on cytologic smear of anus (LGSIL) (principal) | CPT/HCPCS: 46600; 99212 ==

== ENCOUNTER 2024-08-01 11:00 | Outpatient (REF) | payer OTHER, SELFPAY ==
[2024-08-01 13:54] LABS: Alanine Aminotransferase 36 U/L (0-40); Albumin Level 4.3 g/dL (3.5-5.0); Alkaline Phosphatase 76 U/L (39-117); Anion Gap 10 (12-20); Aspartate Amino Transferase 25 U/L (5-37); Bilirubin Total 0.5 mg/dL (0.0-1.0); Blood Urea Nitrogen 22 mg/dL (9-16); Calcium 8.9 mg/dL (8.4-10.2); Carbon Dioxide 24 mmol/L (22-29); Chloride 109 mmol/L (96-108); Estimated Glomerular Filt Rate > 60; Glucose Random 101 mg/dL (60-115); Sodium 139 mmol/L (135-145); Total Protein 8.2 g/dL (6.5-8.0)
[2024-08-02 14:18] LABS: RPR Rapid Plasma Reagin REACTIVE (NON-REACTIVE)
[2024-08-03 15:33] LABS: HIV RNA PCR Qn Copies 307 copies/mL (NOT DETECTED); HIV RNA PCR Qn Log Copies 2.49 (NOT DETECTED)
== END 2024-08-01 11:01 | disposition home or self-care (01) ==
LOC: HO.HHCL 11:00
PROVIDERS: Student in an Organized Health Care Education/Training Program; Visit Provider Internal Medicine
DX: Z21 Asymptomatic human immunodeficiency virus [HIV] infection status (principal)
CPT/HCPCS: 36415; 80053; 86592; 86593; 86787; 87536

== ENCOUNTER 2024-08-22 14:14 | Outpatient (REF) | payer OTHER, SELFPAY ==
[2024-08-22 16:16] LABS: MANUAL DIFF FLAG NO
[2024-08-22 16:26] LABS: Basophils Absolute Auto 0.1 X10*3/uL (0.0-0.2); Basophils Percent Auto 0.8 % (0-2); Eosinophils Absolute Auto 0.1 X10*3/uL (0.0-0.4); Eosinophils Percent Auto 1.6 % (0-4); Hematocrit 41.8 % (42.0-52.0); Hemoglobin 14.2 g/dl (14.0-18.0); Imm Gran Abs Auto 0.01 X10*3/uL (0.00-0.03); Imm Gran Pct Auto 0.1 % (0.0-0.4); Lymphocytes Absolute Auto 3.1 X10*3/uL (1.2-4.9); Lymphocytes Percent Auto 41.8 % (20-40); Mean Corpuscular Hemoglobin 31.1 pg (27.0-33.0); Mean Corpuscular Volume 91.5 fL (80.0-98.0); Monocytes Absolute Auto 0.5 X10*3/uL (0.1-1.2); Monocytes Percent Auto 7.3 % (2-11); Neutrophils Absolute Auto 3.6 x10*3/uL (2.0-8.3); Neutrophils Percent Auto 48.4 % (45-73); Platelet Count 252 X10*3/uL (160-400); Red Blood Count 4.57 X10*6/uL (4.60-5.80); Red Cell Distribution Width 12.6 % (11.0-16.0); White Blood Count 7.4 X10*3/uL (4.8-10.8)
[2024-08-22 17:05] LABS: Alanine Aminotransferase 24 U/L (0-40); Albumin Level 4.2 g/dL (3.5-5.0); Alkaline Phosphatase 78 U/L (39-117); Anion Gap 13 (12-20); Aspartate Amino Transferase 27 U/L (5-37); Bilirubin Total 0.5 mg/dL (0.0-1.0); Blood Urea Nitrogen 20 mg/dL (9-16); Calcium 9.5 mg/dL (8.4-10.2); Carbon Dioxide 26 mmol/L (22-29); Chloride 108 mmol/L (96-108); Estimated Glomerular Filt Rate > 60; Glucose Random 111 mg/dL (60-115); Potassium 4.1 mmol/L (3.3-5.1); Sodium 143 mmol/L (135-145); Total Protein 7.7 g/dL (6.5-8.0)
[2024-08-23 08:18] LABS: ~HepC Num1 0.35 S/CO (0.00-0.79); ~Hepatitis C Antibody Nonreactive (Nonreactive)
[2024-08-24 06:09] LABS: RPR Rapid Plasma Reagin REACTIVE (NON-REACTIVE)
[2024-08-26 14:29] LABS: Absolute CD3 Count 2317 cells/uL (840-3060); Absolute CD4 Count 978 cells/uL (490-1740); Absolute CD8 Count 1334 cells/uL (180-1170); Absolute Lymphocytes 3190 cells/uL (850-3900); CD4 CD8 Ratio 0.73 (0.86-5.00); Percent CD3 Cells 73 % (57-85); Percent CD4 Cells 31 % (30-61); Percent CD8 Cells 42 % (12-42)
== END 2024-08-22 14:15 | disposition home or self-care (01) ==
LOC: HO.HHCL 14:14
PROVIDERS: Internal Medicine; Visit Provider Student in an Organized Health Care Education/Training Program
DX: Z21 Asymptomatic human immunodeficiency virus [HIV] infection status (principal); A52.9 Late syphilis, unspecified
CPT/HCPCS: 36415; 80053; 85025; 86359; 86360; 86592; 86593; 86803

== ENCOUNTER 2024-08-29 11:50 | Outpatient (REF) | payer OTHER, SELFPAY ==
[2024-08-29 13:41] LABS: CT PCR NOT DETECTED (Not Detect.); NG PCR NOT DETECTED (Not Detect.)
[2024-08-30 17:33] LABS: C. Trachomatis RNA TMA, Throat NOT DETECTED (NOT DETECTED); N. gonorrhoeae RNA TMA, Throat NOT DETECTED (NOT DETECTED)
[2024-08-30 21:18] LABS: C.Trachomatis RNA TMA, Rectal NOT DETECTED (NOT DETECTED); N.Gonorrhoeae RNA TMA, Rectal NOT DETECTED (NOT DETECTED)
== END 2024-08-29 11:51 | disposition home or self-care (01) ==
LOC: HO.HHCLNP 11:50
PROVIDERS: Visit Provider Student in an Organized Health Care Education/Training Program
DX: Z72.53 High risk bisexual behavior (principal)
CPT/HCPCS: 87491; 87591

== ENCOUNTER 2024-09-14 14:35 | Outpatient (REF) | payer OTHER, SELFPAY ==
[2024-09-16 14:03] LABS: RPR Rapid Plasma Reagin REACTIVE (NON-REACTIVE)
== END 2024-09-14 14:36 | disposition home or self-care (01) ==
LOC: HO.HHCL 14:35
PROVIDERS: Visit Provider Student in an Organized Health Care Education/Training Program
DX: Z21 Asymptomatic human immunodeficiency virus [HIV] infection status (principal)
CPT/HCPCS: 36415; 86592; 86593

== ENCOUNTER 2024-11-22 14:59 | Outpatient (REF) | payer OTHER, SELFPAY ==
[2024-11-22 16:15] LABS: MANUAL DIFF FLAG NO
[2024-11-22 16:19] LABS: Hematocrit 39.7 % (42.0-52.0); Hemoglobin 13.9 g/dl (14.0-18.0); Imm Gran Abs Auto 0.02 X10*3/uL (0.00-0.03); Imm Gran Pct Auto 0.2 % (0.0-0.4); Lymphocytes Absolute Auto 3.0 X10*3/uL (1.2-4.9); Mean Corpuscular HGB Conc 35.0 g/dl (31.0-36.0); Mean Corpuscular Hemoglobin 31.4 pg (27.0-33.0); Mean Corpuscular Volume 89.8 fL (80.0-98.0); NRBC Abs Auto 0.000 X10*3/uL (0.0-0.012); NRBC Pct Auto 0.0 /100WBC (0.0-0.2); Platelet Count 251 X10*3/uL (160-400); Red Blood Count 4.42 X10*6/uL (4.60-5.80); White Blood Count 8.3 X10*3/uL (4.8-10.8)
[2024-11-22 16:31] LABS: Alanine Aminotransferase 31 U/L (0-40); Albumin Level 4.5 g/dL (3.5-5.0); Alkaline Phosphatase 83 U/L (39-117); Anion Gap 13 (12-20); Aspartate Amino Transferase 27 U/L (5-37); Blood Urea Nitrogen 22 mg/dL (9-16); Calcium 9.2 mg/dL (8.4-10.2); Carbon Dioxide 24 mmol/L (22-29); Chloride 108 mmol/L (96-108); Estimated Glomerular Filt Rate 49; Potassium 3.7 mmol/L (3.3-5.1); Sodium 141 mmol/L (135-145); Total Protein 7.8 g/dL (6.5-8.0)
[2024-11-23 08:23] LABS: ~HepC Num1 0.28 S/CO (0.00-0.79); ~Hepatitis C Antibody Nonreactive (Nonreactive)
[2024-11-23 21:59] LABS: HIV RNA PCR Qn Copies 206 copies/mL (NOT DETECTED); HIV RNA PCR Qn Log Copies 2.31 (NOT DETECTED)
[2024-11-24 13:59] LABS: Rapid Plasma Reagin Ab Titer 1:8
== END 2024-11-22 15:00 | disposition home or self-care (01) ==
LOC: HO.HHCL 14:59
PROVIDERS: PCP Internal Medicine; Visit Provider Student in an Organized Health Care Education/Training Program
DX: Z21 Asymptomatic human immunodeficiency virus [HIV] infection status (principal)
CPT/HCPCS: 36415; 80053; 85025; 86592; 86593; 86803; 87536

== ENCOUNTER 2024-11-24 16:22 | Outpatient (REF) | payer OTHER, SELFPAY | END 2024-11-24 16:23 | disposition home or self-care (01) | LOC: HO.HHCLNP 16:22 | PROVIDERS: Visit Provider Student in an Organized Health Care Education/Training Program | DX: A54.9 Gonococcal infection, unspecified (principal) | CPT/HCPCS: 87081 ==

== ENCOUNTER 2025-01-02 11:49 | Outpatient (REF) | payer OTHER, SELFPAY ==
[2025-01-02 13:59] LABS: Alanine Aminotransferase 25 U/L (0-40); Albumin Level 4.3 g/dL (3.5-5.0); Alkaline Phosphatase 81 U/L (39-117); Anion Gap 11 (12-20); Aspartate Amino Transferase 24 U/L (5-37); Blood Urea Nitrogen 18 mg/dL (9-16); Calcium 9.1 mg/dL (8.4-10.2); Carbon Dioxide 23 mmol/L (22-29); Chloride 110 mmol/L (96-108); Estimated Glomerular Filt Rate > 60; Potassium 3.9 mmol/L (3.3-5.1); Sodium 140 mmol/L (135-145); Total Protein 7.7 g/dL (6.5-8.0)
[2025-01-04 16:18] LABS: HIV RNA PCR Qn Copies 644 copies/mL (NOT DETECTED); HIV RNA PCR Qn Log Copies 2.81 (NOT DETECTED)
[2025-01-15 20:53] LABS: HIV 1 Integrase Proviral DNA DETECTED; HIV 1 PR RT Proviral DNA DETECTED
== END 2025-01-02 11:50 | disposition home or self-care (01) ==
LOC: HO.HHCL 11:49
PROVIDERS: PCP Student in an Organized Health Care Education/Training Program; Visit Provider Student in an Organized Health Care Education/Training Program
DX: Z21 Asymptomatic human immunodeficiency virus [HIV] infection status (principal)
CPT/HCPCS: 36415; 80053; 87536; 87900; 87901; 87906

== ENCOUNTER 2025-01-05 11:37 | Outpatient (REF) | payer OTHER, SELFPAY ==
[2025-01-13 23:28] LABS: Date Viral Load Collected NG; Dolutegravir Resistance NOT PREDICTED; HIV-1 Bictegravir Resistance NOT PREDICTED; HIV-1 Cabotegravir Resistance NOT PREDICTED; HIV-1 Elvitegravir Resistance NOT PREDICTED; Raltegravir Resistance NOT PREDICTED; Value of Last HIV Viral Load NG copies/mL
== END 2025-01-05 11:38 | disposition home or self-care (01) ==
LOC: HO.HHCL 11:37
PROVIDERS: PCP Student in an Organized Health Care Education/Training Program; Visit Provider Student in an Organized Health Care Education/Training Program
DX: Z21 Asymptomatic human immunodeficiency virus [HIV] infection status (principal)
CPT/HCPCS: 36415; 87900; 87901; 87906

== ENCOUNTER 2025-01-09 11:12 | Outpatient (REF) | payer OTHER, SELFPAY ==
--- NOTE | ~2025-01-09 | XR_ITS ---
EXAMINATION: XR FOOT, RIGHT CLINICAL INFORMATION: wound, plantar aspect between third and fourth toe. COMPARISON: None available. TECHNIQUE: AP, lateral, and oblique views of the right foot. FINDINGS: No fracture, dislocation, or suspicious bone lesion. Normal bone mineralization. Normal alignment. Joint spaces are preserved. No significant arthropathy. There is a small plantar calcaneal spur. Soft tissues appear normal. There is no foreign body or soft tissue emphysema. XR/XR foot RT min 3V IMPRESSION: No acute bony abnormalities of the right foot. Electronically signed by: Som Salmeron MD 01/09/2025 12:54 PM EDT
[2025-01-09 16:37] LABS: CT PCR Urine NOT DETECTED (Not Detect.); NG PCR Urine NOT DETECTED (Not Detect.)
[2025-01-10 18:13] LABS: C.Trachomatis RNA TMA, Rectal NOT DETECTED (NOT DETECTED); N.Gonorrhoeae RNA TMA, Rectal NOT DETECTED (NOT DETECTED)
[2025-01-10 18:47] LABS: C. Trachomatis RNA TMA, Throat NOT DETECTED (NOT DETECTED); N. gonorrhoeae RNA TMA, Throat NOT DETECTED (NOT DETECTED)
== END 2025-01-09 11:13 | disposition home or self-care (01) ==
LOC: HO.HHCX 11:12
PROVIDERS: PCP Student in an Organized Health Care Education/Training Program; Visit Provider Student in an Organized Health Care Education/Training Program
DX: S90.821A Blister (nonthermal), right foot, initial encounter (principal); Z72.53 High risk bisexual behavior
CPT/HCPCS: 73630; 87070; 87147; 87491; 87591

== ENCOUNTER → 2025-01-09 11:42 | Outpatient (BNV) | payer OTHER, SELFPAY | PROVIDERS: PCP Student in an Organized Health Care Education/Training Program; Visit Provider Radiology Diagnostic Radiology | DX: S90.821A Blister (nonthermal), right foot, initial encounter (principal) | CPT/HCPCS: 73630 ==

== ENCOUNTER 2025-01-13 09:54 | Outpatient (REF) | payer OTHER, SELFPAY ==
[2025-01-13 11:57] LABS: Appearance Urine Turbid; Glucose Urine UA Negative (Negative); PH 6.0 (5.0-9.0); Specific Gravity - Urine 1.025 (1.005-1.025)
[2025-01-13 12:03] LABS: Hematocrit 42.9 % (42.0-52.0); Hemoglobin 14.5 g/dl (14.0-18.0); Mean Corpuscular HGB Conc 33.8 g/dl (31.0-36.0); Mean Corpuscular Hemoglobin 30.7 pg (27.0-33.0); Mean Corpuscular Volume 90.9 fL (80.0-98.0); NRBC Abs Auto 0.000 X10*3/uL (0.0-0.012); NRBC Pct Auto 0.0 /100WBC (0.0-0.2); Platelet Count 258 X10*3/uL (160-400); Red Blood Count 4.72 X10*6/uL (4.60-5.80); White Blood Count 6.6 X10*3/uL (4.8-10.8)
[2025-01-13 12:24] LABS: Hemoglobin A1C 132.1678 umol/L; Total Hemoglobin (HGBA1C) 3709.9923 umol/L
[2025-01-13 12:42] LABS: Microalbum/Creatinine Ratio Ur 3.3 ug/mg cr (<30)
[2025-01-13 13:37] LABS: Alanine Aminotransferase 24 U/L (0-40); Albumin Level 4.4 g/dL (3.5-5.0); Alkaline Phosphatase 85 U/L (39-117); Anion Gap 12 (12-20); Aspartate Amino Transferase 27 U/L (5-37); Blood Urea Nitrogen 18 mg/dL (9-16); Calcium 9.0 mg/dL (8.4-10.2); Carbon Dioxide 23 mmol/L (22-29); Chloride 110 mmol/L (96-108); Cholesterol 174 mg/dL (<200); Estimated Glomerular Filt Rate > 60; HDL Cholesterol 30 mg/dL (>40); Potassium 4.1 mmol/L (3.3-5.1); Sodium 141 mmol/L (135-145); Total Protein 7.6 g/dL (6.5-8.0); Triglycerides 77 mg/dL (<150)
[2025-01-13 13:58] LABS: Folate 10.4 ng/mL (> or = 4.0); Vitamin B12 365 pg/mL (200-900)
[2025-01-14 08:37] LABS: HBsAGNum1 0.36 S/CO (0.00-0.99); Hepatitis B Surface Antigen Negative (Negative); ~HepC Num1 0.27 S/CO (0.00-0.79); ~Hepatitis C Antibody Nonreactive (Nonreactive)
[2025-01-16 13:52] LABS: TS Negative Control Passed; TS Panel A 0; TS Panel B 0; TS Positive Control Passed; TSpotTB Negative (Negative)
[2025-01-17 13:54] LABS: Rapid Plasma Reagin Ab Titer 1:8
[2025-01-18 15:19] LABS: Absolute CD3 Count 2042 cells/uL (840-3060); Absolute CD8 Count 1231 cells/uL (180-1170); Percent CD3 Cells 71 % (57-85); Percent CD8 Cells 43 % (12-42)
== END 2025-01-13 09:55 | disposition home or self-care (01) ==
LOC: HO.HHCL 09:54
PROVIDERS: PCP Student in an Organized Health Care Education/Training Program; Visit Provider Student in an Organized Health Care Education/Training Program
DX: Z00.00 Encounter for general adult medical examination without abnormal findings (principal); Z21 Asymptomatic human immunodeficiency virus [HIV] infection status; Z11.1 Encounter for screening for respiratory tuberculosis; Z11.3 Encounter for screening for infections with a predominantly sexual mode of transmission; Z11.59 Encounter for screening for other viral diseases
CPT/HCPCS: 36415; 80053; 80061; 81001; 82043; 82306; 82570; 82607; 82746; 83036; 84443; 85027; 86359; 86360; 86481; 86592; 86593; 86803; 87340

== ENCOUNTER 2025-03-09 09:38 | Outpatient (REF) | payer OTHER, SELFPAY ==
[2025-03-09 13:06] LABS: Syphilis Screen Reactive (Nonreactive)
[2025-03-15 11:40] LABS: T.Pallidum Particle Agg Test Reactive (Nonreactive)
== END 2025-03-09 09:39 | disposition home or self-care (01) ==
LOC: HO.HHCL 09:38
PROVIDERS: PCP Student in an Organized Health Care Education/Training Program; Visit Provider Student in an Organized Health Care Education/Training Program
DX: Z11.3 Encounter for screening for infections with a predominantly sexual mode of transmission (principal)
CPT/HCPCS: 36415; 86592; 86780

== ENCOUNTER 2025-04-12 14:01 | Outpatient (REF) | payer OTHER, SELFPAY ==
[2025-04-12 16:06] LABS: MANUAL DIFF FLAG NO
[2025-04-12 16:14] LABS: Hematocrit 43.0 % (42.0-52.0); Hemoglobin 14.3 g/dl (14.0-18.0); Imm Gran Abs Auto 0.01 X10*3/uL (0.00-0.03); Imm Gran Pct Auto 0.1 % (0.0-0.4); Lymphocytes Absolute Auto 3.4 X10*3/uL (1.2-4.9); Mean Corpuscular HGB Conc 33.3 g/dl (31.0-36.0); Mean Corpuscular Hemoglobin 30.5 pg (27.0-33.0); Mean Corpuscular Volume 91.7 fL (80.0-98.0); NRBC Abs Auto 0.000 X10*3/uL (0.0-0.012); NRBC Pct Auto 0.0 /100WBC (0.0-0.2); Platelet Count 246 X10*3/uL (160-400); Red Blood Count 4.69 X10*6/uL (4.60-5.80); White Blood Count 7.6 X10*3/uL (4.8-10.8)
[2025-04-12 16:32] LABS: Alanine Aminotransferase 27 U/L (0-40); Albumin Level 4.6 g/dL (3.5-5.0); Alkaline Phosphatase 81 U/L (39-117); Anion Gap 11 (12-20); Aspartate Amino Transferase 28 U/L (5-37); Blood Urea Nitrogen 19 mg/dL (9-16); Calcium 9.4 mg/dL (8.4-10.2); Carbon Dioxide 23 mmol/L (22-29); Chloride 107 mmol/L (96-108); Estimated Glomerular Filt Rate > 60; Potassium 3.8 mmol/L (3.3-5.1); Sodium 137 mmol/L (135-145); Total Protein 7.9 g/dL (6.5-8.0)
[2025-04-13 07:03] LABS: Rubeola IgG (Measles) 49.20 AU/mL
[2025-04-13 09:11] LABS: ~HepC Num1 0.24 S/CO (0.00-0.79); ~Hepatitis C Antibody Nonreactive (Nonreactive)
[2025-04-14 14:08] LABS: Rapid Plasma Reagin Ab Titer 1:8
[2025-04-14 15:34] LABS: HIV RNA PCR Qn Copies 376 copies/mL (NOT DETECTED); HIV RNA PCR Qn Log Copies 2.58 (NOT DETECTED)
== END 2025-04-12 14:02 | disposition home or self-care (01) ==
LOC: HO.HHCL 14:01
PROVIDERS: PCP Student in an Organized Health Care Education/Training Program; Visit Provider Student in an Organized Health Care Education/Training Program
DX: Z21 Asymptomatic human immunodeficiency virus [HIV] infection status (principal); Z11.59 Encounter for screening for other viral diseases; Z01.84 Encounter for antibody response examination; Z11.3 Encounter for screening for infections with a predominantly sexual mode of transmission
CPT/HCPCS: 36415; 80053; 85025; 86592; 86593; 86735; 86762; 86765; 86803; 87536